=== PATIENT | male | born 1975 | race Caucasian/White ===

== ENCOUNTER 2018-02-12 15:35 | Emergency (ER) | payer SELFPAY ==
[2018-02-12] MEDS: KETOROLAC 60 MG INJ IM (17:32)
[2018-02-12] MEDS: DIPHTH/TET/ACEL PERTUSS (ADULT) 0.5 ML VIAL IM* (17:33)
== END 2018-02-12 18:56 | disposition home or self-care (01) ==
LOC: FTE 15:35
DX: S60.131A Contusion of right middle finger with damage to nail, initial encounter (principal); F17.210 Nicotine dependence, cigarettes, uncomplicated; W23.1XXA Caught, crushed, jammed, or pinched between stationary objects, initial encounter; Y92.9 Unspecified place or not applicable; Z23 Encounter for immunization
CPT/HCPCS: 73130; 73130-RT; 90471; 90715; 96372; 99284-25